=== PATIENT | female | born 1945 | race Caucasian/White ===

== ENCOUNTER 2021-02-17 13:51 | Emergency (ER) | payer OTHER ==
[2021-02-17] MEDS ORDERED: Ketorolac 30 MG/ML SDV IM ONE (14:30)
--- NOTE | 2021-02-17 14:30 | EDM.PDOC ---
ED HPI GENERAL MEDICAL PROBLEM - General Chief Complaint: Lower Extremity Injury/Pain Stated Complaint: left hip pain Time Seen by Provider: 02/17/21 14:05 Source of Information: Reports: Patient History Limitations: Reports: No Limitations - History of Present Illness INITIAL COMMENTS - FREE TEXT/NARRATIVE: Patient comes in the emergency department with complaints of left hip pain. Patient recently had a fall approximately 24 hours ago and states that she was able to ambulate on that left hip however she got into the car this morning and was going on a extended period road trip and ended up having increased amount of pain and discomfort when she tried to get the car after about 2 to 2-1/2 hours of driving. She does normally walk with a cane and ended up needing a cane and assistance by her daughter to get in and out of the vehicle. She states that the left hip has become more significant with pain with trying to move the hip joint itself. She denies any swelling or discomfort down the lower extremity or numbness or tingling. She also states that she is able to ambulate if necessary however the pain and discomfort does limit her mobility with that. Patient denie s injuring any other extremity or hitting her head on her fall yesterday. She states that she misstepped. Patient has no other concerns or complaints. Duration: Other Location: Reports: Lower Extremity, Left Quality: Reports: Throbbing Severity: Moderate Improves with: Reports: Rest Worsens with: Reports: Movement Context: Reports: Other Associated Symptoms: Reports: No Other Symptoms Left Hip Pain Score (Numeric/FACES): 1 - Related Data Allergies Allergy/AdvReac Type Severity Reaction Status Date / Time No Known Allergies Allergy Verified 02/17/21 14:36 Home Meds: Home Meds Aspirin 81 mg PO DAILY 02/17/21 [History] ED ROS GENERAL - Review of Systems Review Of Systems: Comprehensive ROS is negative, except as noted in HPI. Constitutional: Reports: No Symptoms HEENT: Reports: No Symptoms Respiratory: Reports: No Symptoms Cardiovascular: Reports: No Symptoms Endocrine: Reports: No Symptoms GI/Abdominal: Reports: No Symptoms : Reports: No Symptoms Musculoskeletal: Reports: Neck Pain Skin: Reports: No Symptoms Neurological: Reports: No Symptoms Psychiatric: Reports: No Symptoms Hematologic/Lymphatic: Reports: No Symptoms Immunologic: Reports: No Symptoms ED EXAM, GENERAL - Physical Exam Exam: See Below Exam Limited By: No Limitations General Appearance: Alert, WD/WN, No Apparent Distress Nose: Normal Inspection, Normal Mucosa Throat/Mouth: Normal Inspection, Normal Lips, Normal Teeth Head: Atraumatic, Normocephalic Neck: Normal Inspection, Supple, Non-Tender, Full Range of Motion Respiratory/Chest: No Respiratory Distress, Lungs Clear, Normal Breath Sounds, No Accessory Muscle Use, Chest Non-Tender Cardiovascular: Normal Peripheral Pulses, Regular Rate, Rhythm GI/Abdominal: Normal Bowel Sounds, Soft, Non-Tender Back Exam: Normal Inspection, Full Range of Motion Extremities: Normal Inspection, Normal Range of Motion, Non-Tender, Normal Capillary Refill Neurological: Alert, Oriented, Normal Gait Psychiatric: Normal Affect, Normal Mood Skin Exam: Warm, Dry, Intact Course - Vital Signs Last Recorded V/S: Last Vital Signs Temp 36.2 C 02/17/21 14:10 Pulse 58 L 02/17/21 14:10 Resp 16 02/17/21 14:10 BP 124/66 02/17/21 14:10 Pulse Ox 97 02/17/21 14:10 - Orders/Labs/Meds Meds: Medications Discontinued Medications Generic Name Dose Route Start Last Admin Trade Name Tommyq PRN Reason Stop Dose Admin Ketorolac Tromethamine 30 mg 02/17/21 14:30 Ketorolac 30 Mg/Ml Sdv IM 02/17/21 14:31 ONETIME ONE Departure - Departure Time of Disposition: 15:40 Disposition: Home, Self-Care 01 Clinical Impression: Hip strain Qualifiers: Encounter type: initial encounter Laterality: left Qualified Code(s): S76.012A - Strain of muscle, fascia and tendon of left hip, initial encounter - Discharge Information *PRESCRIPTION DRUG MONITORING PROGRAM REVIEWED*: Not Applicable *COPY OF PRESCRIPTION DRUG MONITORING REPORT IN PATIENT ELIAZAR: Not Applicable Instructions: Hip Pain Referrals: PCP,Not In Area [Primary Care Provider] - Forms: ED Department Discharge Additional Instructions: 1. Rest 2. Discharge information has been provided regarding your injury 3. Can use tylenol and ibuprofen as needed for pain and discomfort 4. Diet as tolerated 5. Activity as tolerated 6. Elevated the injured area above the level of the heart to decrease swelling and discomfort. 7. Use ice 3-4 times a day at 20-minute intervals to help with any swelling and discomfort 8. Follow-up with your primary care provider symptoms continue or to progress 9. Follow with any questions or concerns Sepsis Event Note (ED) - Focused Exam Vital Signs: Vital Signs Temp Pulse Resp BP Pulse Ox 02/17/21 14:10 36.2 C 58 L 16 124/66 97 - Assessment/Plan Assessment:: 1. left hip pain 2. left hip injury Plan: 1. X-ray completed in the emergency department results reviewed with the patient 2. Ice Applied to the affected limb 3. Medication offered to the patient 4. Education regarding splinting, activity, [id number] medications, and follow-up care provided. 5. All questions and concerns addressed with the patient prior to discharge
--- NOTE | 2021-02-17 15:37 | CR ---
[id number] RAD/RAD Pelvis 1V W Deejay Hip 2V Exam: RAD Pelvis 1V W Deejay Hip 2V Indication:FALL LEFT SIDE. Comparison: No prior imaging for comparison. Discussion/Impression: No prior imaging available for comparison or correlation. Bilateral femoroacetabular arthroplasties. Prosthesis components remain in normal alignment bilaterally. Distal aspects of the femoral components were not included on the [id number]. No radiographically evident fracture. Diffuse bone demineralization. Jason Tinajero MD 02/17/21 [id number] Thank you for allowing us to participate in the care of your patient.
== END 2021-02-17 15:50 | disposition home or self-care (01) ==
LOC: VM.ED 13:51
DX: S76.012A Strain of muscle, fascia and tendon of left hip, initial encounter (principal); Z79.82 Long term (current) use of aspirin; Z96.641 Presence of right artificial hip joint; Z96.642 Presence of left artificial hip joint; W18.39XA Other fall on same level, initial encounter
CPT/HCPCS: 99283; 99283-25